=== PATIENT | male | born 1980 | race Caucasian/White ===

== ENCOUNTER 2021-04-15 09:46 | Day surgery (SDC) | payer SELFPAY ==
[2021-04-15 09:40] VITALS: BP 115/74; PULSE 56
[~2021-04-15 09:46] MED LIST: Albuterol 0.083% 2.5 MG/3 ML Neb Soln NEB PRN; Lactated Ringers 1,000 ML IV SCH; Lidocaine 1%/Sod Bicarbonate in NS 8.4% 1 ML Syringe IDERM PRN; Sodium Chloride 0.9% 10 ML Syringe FLUSH SCH
[2021-04-15] MEDS ORDERED: Albuterol 0.083% 2.5 MG/3 ML Neb Soln NEB ONE (10:19)
== END 2021-04-15 11:20 ==
LOC: JD.SDS 09:46
PROVIDERS: ATTEND Surgery
DX: K64.9 Unspecified hemorrhoids (principal); Z53.01 Procedure and treatment not carried out due to patient smoking; Z88.8 Allergy status to other drugs, medicaments and biological substances; Z98.890 Other specified postprocedural states; F17.210 Nicotine dependence, cigarettes, uncomplicated; Z79.899 Other long term (current) drug therapy
CPT/HCPCS: J7120

== ENCOUNTER 2022-02-26 19:36 | Emergency (ER) | payer SELFPAY ==
[2022-02-26] MEDS ORDERED: Sodium Chloride 0.9% 10 ML Syringe FLUSH PRN (20:09)
[2022-02-26] MEDS ORDERED: HYDROmorphone 0.5 MG/0.5 ML Syringe IVPUSH ONE (20:10)
[2022-02-26] MEDS ORDERED: Ondansetron 4 MG/2 ML SDV IVPUSH ONE (20:10)
[2022-02-26] MEDS ORDERED: Sodium Chloride 0.9% 1,000 ML IV STA (20:10)
[2022-02-26] MEDS ORDERED: Ketorolac 30 MG/ML SDV IVPUSH ONE (21:13)
[2022-02-26 21:15] LABS: CORONAVIRUS COVID-19 NAA POSITIVE (NEGATIVE)
[2022-02-26 22:01] VITALS: BP 117/67; PULSE 81
== END 2022-02-26 22:28 | disposition home or self-care (01) ==
LOC: JD.ED 19:36
DX: U07.1 COVID-19 (principal); F17.210 Nicotine dependence, cigarettes, uncomplicated; Z91.018 Allergy to other foods
CPT/HCPCS: 0240U; 36415; 80053; 83735; 85025; 86140; 96361; 96374; 96375; 99283; J1170; J1885; J2405; J3490; J7030

== ENCOUNTER 2022-08-14 11:50 | Emergency (ER) | payer BC ==
[2022-08-14] MEDS ORDERED: Sodium Chloride 0.9% 10 ML Syringe FLUSH PRN (12:01)
[2022-08-14 12:25] LABS: BASOPHILS ABSOLUTE AUTO 0.02 K/mm3 (0.01-0.08); BASOPHILS PERCENT AUTO 0.3 % (0.1-1.2); EOSINOPHILS ABSOLUTE AUTO 0.07 K/mm3 (0.04-0.54); EOSINOPHILS PERCENT AUTO 1.1 (0.8-7.0); HEMATOCRIT 44.5 % (40.1-51.0); HEMOGLOBIN 15.8 gm/dl (13.7-17.5); LYMPHOCYTES PERCENT AUTO 26.4 % (21.8-53.1); MEAN CORPUSCULAR HEMOGLOBIN 31.9 pg (25.7-32.2); MEAN CORPUSCULAR HGB CONC 35.5 g/dl (32.2-35.5); MEAN CORPUSCULAR VOLUME 89.9 fl (79.0-92.2); MEAN PLATELET VOLUME 10.2 fl (9.4-12.3); MONOCYTES ABSOLUTE AUTO 0.47 K/mm3 (0.30-0.82); MONOCYTES PERCENT AUTO 7.3 % (5.3-12.2); NEUTROPHILS ABSOLUTE AUTO 4.17 K/mm3 (1.78-5.38); NEUTROPHILS PERCENT AUTO 64.9 % (34.0-67.9); PLATELET COUNT,PLT 174 K/mm3 (163-337); RED BLOOD CELL COUNT 4.95 M/mm3 (4.63-6.08); WHITE BLOOD CELL COUNT,WBC 6.43 K/mm3 (4.23-9.07)
[2022-08-14 12:30] LABS: A/G RATIO 1.4 (1-2); BILIRUBIN TOTAL 0.8 mg/dL (0.2-1.0); BUN/CREATININE RATIO 18.2 (14-18); CALCIUM 8.5 mg/dL (8.5-10.1); CREATININE 1.1 mg/dL (0.7-1.3); EST CRCL DRUG DOSING (CG) 93.66 mL/min; PROTEIN TOTAL,TP 6.9 g/dl (6.4-8.2)
[2022-08-14 13:48] VITALS: BP 119/79; PULSE 51
== END 2022-08-14 13:45 | disposition home or self-care (01) ==
LOC: JD.ED 11:50
DX: R07.89 Other chest pain (principal); Z91.018 Allergy to other foods; Z72.0 Tobacco use
CPT/HCPCS: 36415; 71046; 80053; 84484; 85025; 85379; 93005; 99285; J3490

== ENCOUNTER 2023-05-10 20:11 | Emergency (ER) | payer SELFPAY ==
[2023-05-10] MEDS: Acetaminophen 325 MG Tab PO STA (21:06)
[2023-05-10 21:07] LABS: CORONAVIRUS COVID-19 NAA POSITIVE (NEGATIVE); INFLUENZA A NAA NEGATIVE (NEGATIVE); RESPIRATORY SYNCYTIAL VIR NAA NEGATIVE (NEGATIVE)
[2023-05-10 21:31] VITALS: BP 129/75; PULSE 7
== END 2023-05-10 20:25 | disposition home or self-care (01) ==
LOC: JD.ED 20:11
DX: U07.1 COVID-19 (principal); Z91.018 Allergy to other foods
CPT/HCPCS: 0241U; 99283; A9270

== ENCOUNTER 2023-08-27 08:05 | Emergency (ER) | payer BC ==
[2023-08-27] MEDS: Acetaminophen/oxyCODONE 325-5 MG Tab PO ONE (08:37)
[2023-08-27] MEDS: Diphtheria,Pertussis(Acell),Tetanus Vaccine 0.5 ML Syringe IM ONE (08:38)
[2023-08-27 09:21] VITALS: BP 149/90; PULSE 54
== END 2023-08-27 09:10 | disposition home or self-care (01) ==
LOC: JD.ED 08:05
DX: S02.2XXA Fracture of nasal bones, initial encounter for closed fracture (principal); F17.210 Nicotine dependence, cigarettes, uncomplicated; Z86.16 Personal history of COVID-19; Z91.018 Allergy to other foods; Z23 Encounter for immunization; W20.8XXA Other cause of strike by thrown, projected or falling object, initial encounter
CPT/HCPCS: 90471; 90715; 99283; 99283-25; A9270-GY

== ENCOUNTER 2023-09-13 18:03 | Emergency (ER) | payer BC ==
[2023-09-13 18:21] VITALS: BP 135/91; PULSE 72
[2023-09-13] MEDS: Lidocaine 1% 10 ML MDV INJECT ONE (18:51)
== END 2023-09-13 19:34 | disposition home or self-care (01) ==
LOC: JD.ED 18:03
DX: S61.213A Laceration without foreign body of left middle finger without damage to nail, initial encounter (principal); Z91.018 Allergy to other foods; Z86.16 Personal history of COVID-19; W25.XXXA Contact with sharp glass, initial encounter; Y93.89 Activity, other specified
CPT/HCPCS: 12001; 73140-26-F2; 73140-F2; 99283; J3490